=== PATIENT | female | born 1940 | race Caucasian/White ===

== ENCOUNTER 2021-11-18 11:40 | Inpatient (IN) | payer OTHER, MEDICARE ==
[~2021-11-18] VITALS: Ht 152.4 cm; Wt 44.9 kg
[~2021-11-18 11:40] MED LIST: ASPI325 PO; BENA20 PO; BISA5EC PO; BUPR150ER PO; BUPR150T2 PO; CALCAVITD PO; CALCIUM+VIT D PO; CLON.1 PO; CLON.3 PO; CLON.5 PO; DOCU100 PO; FISH1000 PO; HYDACE5325 PO; LEVSOD100 PO; LOPE2C PO; MULVITMIND PO; MULVITMINF PO; Norco 5-325 Ta1 EACH PO; ROPI.25 PO; RXHYD5325 PO
[2021-11-18 12:09] LABS: BASOPHILS ABSOLUTE AUTO 0.05 K/mm3 (0.00-0.23); BASOPHILS PERCENT AUTO 0 % (0-2); EOSINOPHILS ABSOLUTE AUTO 0.07 K/mm3 (0.00-0.68); EOSINOPHILS PERCENT AUTO 1 % (0-6); Hematocrit 42.1 % (33.0-51.0); Hemoglobin 14.4 g/dL (11.5-16.0); IMMATURE GRAN ABSOLUTE AUTO 0.05 K/mm3 (0.00-0.10); IMMATURE GRAN PERCENT AUTO 0 % (0-1); LYMPHOCYTES ABSOLUTE AUTO 1.69 K/mm3 (0.84-5.20); LYMPHOCYTES PERCENT AUTO 13 % (21-46); MONOCYTES ABSOLUTE AUTO 0.34 K/mm3 (0.16-1.47); MONOCYTES PERCENT AUTO 3 % (4-13); Mean Corpuscular HGB Conc 34.2 g/dL (31.5-36.5); Mean Corpuscular Volume 96 fL (80-100); Mean Platelet Volume 9.5 fL (9.1-12.4); NEUTROPHILS ABSOLUTE AUTO 10.58 K/mm3 (1.96-9.15); NEUTROPHILS PERCENT AUTO 83 % (41-73); Platelet Count 216 K/mm3 (150-400); RDW Coefficient Variation 14.2 % (11.7-14.2); RDW Standard Deviation 50.7 fL (35.1-46.3); Red Blood Cell Count 4.37 M/mm3 (3.80-5.20); White Blood Cell Count 12.78 K/mm3 (4.00-11.30)
[2021-11-18 12:26] LABS: Bun/Creatinine Ratio 21.7 (12.0-20.0); Calcium, Blood 8.5 mg/dL (8.5-10.1); Creatinine, Blood 0.92 mg/dL (0.40-1.00); Potassium, Blood 3.7 mmol/L (3.5-5.5)
--- NOTE | 2021-11-18 19:43 | NUR ---
SHIFT SUMMARY PT A&O3, VSS/RA, MISAEL PO, PAIN TREATED WITH 25 MCGS FENT, REPOSITIONS SELF WELL. PLAN FOR NOC SHIFT TO CALL CARDIO CONSULT FOR TONIGHT, ORTHO SURGEON PLAN FOR O.R. IN AM, NPO AT MIDNIGHT. REPORT PROVIDED TO ARIAN MACIAS.
[2021-11-18 22:21] LABS: Influenza A, PCR NEGATIVE (NEGATIVE); Influenza B, PCR NEGATIVE (NEGATIVE); Resp Syncytial Virus, PCR NEGATIVE (NEGATIVE); SARS-Cov-2 (COVID-19) PCR, MMC NEGATIVE (NEGATIVE)
--- NOTE | 2021-11-19 04:56 | NUR ---
0340: [employer] JOHAN CALLED STATING PT HAS INTERMITTENT JUNCTIONAL RHYTHM WITH HIDDEN P WAVE. CALLED DR. SMITH, HE REQUEST FOR AN EKG. EKG PERFORMED. VITALS RECHECKED PT BP AT 196/76. DENIES CHEST PAIN, NAUSEA, DIZZINESS, SWEATING AND VOMITING. PT IS ASYMPTOMATIC. PT TOOK OFF HER NASAL CANULA, SATS WERE ON 83-85%. 3L NC O2 WAS GIVEN TO PT, SATS UP TO 91-93%. PT ALSO REPORTS PAIN. MEDICATED WITH FENTANYL 50MCG. VITALS WERE RECHECKED PRIOR FENTANYL IV WAS GIVEN. BP WAS 142/69 [facility]. PT DIDN'T REQUIRE HYDRALAZINE 10MG PRN, Q6 (PER DR. SMITH) AT THIS TIME. WILL CONTINUE TO MONITOR PT. CALL LIGHT WITHIN REACH.
--- NOTE | 2021-11-19 05:59 | NUR ---
SHIFT SUMMARY PT ADMITTED FOR CLOSED FX R HIP D/T FALL. PT REPORTS MODERATE PAIN T/O SHIFT. PAIN MANAGED WITH FENTANYL 25-50MCG. PT SLEPT GOOD LAST NIGHT. TECHNICAL SALES SPECIALIST CALLED AT 0300AM STATING PT HAS JUNCTION RHYTHM. PT WAS SOUND ASLEEP. CALLED DR. SMITH OF THIS. HE ADVISE TO DO AN EKG. EKG DONE. BP WAS ELEVATED NOTIFIED DR. SMITH, NEW ORDER FOR HYRDALZINE 10MG Q6 PRN ON EMR. I RECHECKED BP PRIOR GIVING HYDRALIZE BUT BP HAS IMPROVED ALREADY TO 142/96. O2 SATS HAS BEEN 82-85% ON ROOM AIR SINCE THE START OF SHIFT. PT ON 3L O2 N/C, SATS BETWEEN 91-93%. PT REPORTS CHRONIC SOB R/T COPD AND CURRENT EVERYDAY SMOKER. PT DENIES CHEST PAIN, DIZZINESS, N/T. CARDIOLOGY CONSULT WAS CALLED IN YESTERDAY AT 0900 FOR PREOP CLEARANCE. THIAGO (ANS SERVICE) NOTIFIED DR. GREEN VIA PAGER. PT ALERT ORIENTEDX3. MOSTLY FORGETFUL DUE TO HX ALZHEIMERS. APPROPRIATE AND COOPERATIVE WITH CARE. CALL LIGHT WITHIN REAC. WILL CONTNUE TO MONITOR PT AND WILL PROVIDE REPORT TO ONCOMING NURSE
[2021-11-19] MEDS ORDERED: ALBU90OI INH (06:26)
--- NOTE | 2021-11-19 07:22 | NUR ---
CARDIOLOGY CLEARED FOR SURGERY PER CARDIOLOGY
--- NOTE | 2021-11-19 17:39 | NUR ---
SHIFT SUMMARY POD0 R HIP GAMMA NAIL, A/O X4 BUT OCCASIONALLY FORGETFUL, TOLERATING PO, 1 PERSON ASSIST c AMBULATION AND TRANSFERS, SPENT PART OF THE DAY UP TO THE CHAIR AFTER SURGERY, WORKED WITH PHYSICAL THERAPY AND WAS ABLE TO AMBULATE WELL. NO ACUTE EVENTS THIS SHIFT, CALL LIGHT IN REACH, WILL CTM AND REPORT TO ONCOMING NOC RN.
[2021-11-20 04:19] LABS: BASOPHILS ABSOLUTE AUTO 0.02 K/mm3 (0.00-0.23); BASOPHILS PERCENT AUTO 0 % (0-2); EOSINOPHILS PERCENT AUTO 0 % (0-6); Hematocrit 29.2 % (33.0-51.0); Hemoglobin 9.9 g/dL (11.5-16.0); IMMATURE GRAN ABSOLUTE AUTO 0.04 K/mm3 (0.00-0.10); IMMATURE GRAN PERCENT AUTO 0 % (0-1); LYMPHOCYTES ABSOLUTE AUTO 1.97 K/mm3 (0.84-5.20); LYMPHOCYTES PERCENT AUTO 15 % (21-46); MONOCYTES ABSOLUTE AUTO 0.75 K/mm3 (0.16-1.47); MONOCYTES PERCENT AUTO 6 % (4-13); Mean Corpuscular HGB 32.9 pg (26.0-34.0); Mean Corpuscular HGB Conc 33.9 g/dL (31.5-36.5); Mean Corpuscular Volume 97 fL (80-100); Mean Platelet Volume 10.3 fL (9.1-12.4); NEUTROPHILS ABSOLUTE AUTO 9.98 K/mm3 (1.96-9.15); NEUTROPHILS PERCENT AUTO 78 % (41-73); Platelet Count 165 K/mm3 (150-400); RDW Coefficient Variation 14.2 % (11.7-14.2); RDW Standard Deviation 50.1 fL (35.1-46.3); Red Blood Cell Count 3.01 M/mm3 (3.80-5.20); White Blood Cell Count 12.76 K/mm3 (4.00-11.30)
[2021-11-20 04:49] LABS: Free Thyroxine 0.66 ng/dL (0.70-1.60)
[2021-11-20 04:55] LABS: Albumin, Blood 3.1 g/dL (3.4-5.0); Anion Gap 8 mmol/L (6-16); Blood Urea Nitrogen 30 mg/dL (8-24); Bun/Creatinine Ratio 18.9 (12.0-20.0); CO2, Blood 23 mmol/L (21-32); Calcium, Blood 8.6 mg/dL (8.5-10.1); Chloride, Blood 101 mmol/L (98-108); Creatinine, Blood 1.59 mg/dL (0.40-1.00); Glomerular Filtration Rate 33 (60-); Glucose, Blood 105 mg/dL (70-99); Phosphorus, Blood 4.3 mg/dL (2.5-4.9); Potassium, Blood 4.3 mmol/L (3.5-5.5); Sodium, Blood 132 mmol/L (136-145); Triiodothyronine, Free <0.50 pg/mL (2.18-3.98)
--- NOTE | 2021-11-20 07:17 | NUR ---
SHIFT SUMMARY POD1 R HIP GAMMA NAIL WITH AQUACEL DRESSING REMAIN CDI. PT APPEARS TO BE MORE CONFUSE LAST NIGHT. AT ONE POINT, SHE GOT UP AND STRIP OFF HER BLANKET, GOWN, AND TELE. BED ALARM ON AND BED ON LOW POSITION. REORIENT PT, EASILY REORIENTED. SHE IS PLEASANT, COOPERATIVE WITH CARE. VSS. TELE REMAIN SINUS AMMON. AMBULATES IN THE BSC WITH FWW AND GB WITH 1 SBA WHEN VOIDING. PT UNABLE TO VOID LAST NIGHT, STRAIGHT CATH WITH 500MLS URINE OUTPUT. ALSO PT'S GFR THIS IS 33, WHICH WAS [address] SMITH, NOTIFIED, AN ORDER FOR 1 BAG OF NS AT 75MLS/HR. IV ON R AC, PATENT AND INFUSING. CALL LIGHT WITHIN REACH. REPORT GIVEN TO JAELYN MACIAS.
--- NOTE | 2021-11-20 19:14 | NUR ---
SHIFT SUMMARY POD1 R HIP GAMMA NAIL, A/O BUT FORGETFUL TODAY WITH REPEATING QUESTIONS AND STATEMENTS AT TIMES, WORKED AND DID WELL WITH PHYSICAL THERAPY, VOIDING WELL, TOLERATING PO. NO ACUTE EVENTS THIS SHIFT, CALL LIGHT IN REACH, REPORT GIVEN TO MARIUSZ RN.
--- NOTE | 2021-11-21 05:07 | NUR ---
SHIFT SUMMARY POD2 R HIP GAMMA NAILING WITH AQUACEL DRESSING WITH SMALL DRAINAGE. DRESSING INTACT. PT AOX3 FORGETFUL AT TIMES. PT REPORTS PAIN TO BE MIN AT REST AND MODERATE WITH MOVEMENT. PAIN MANAGED WITH PERCOCET (2). SPOKE WITH RESP THERAPIST AFTER HER BREATHING TREATMENT AT 2039, HE REPORTED THAT THE PT'S SATS ON LOW 80'S WITH 5L NC. ADJUST THE O2 TO 9L OXYMIZER, PT WAS SATURATING ON LOW 90'S. PT GOT UP IN THE BSC AT MIDNIGHT, REPORTING OUT OF BREATH. DESATS AT LOW 80'S AGAIN WIHT 9L OXYMIZER. PT WAS MOUTH BREATHING. ENC PURSED LIP DEEP BREATHING, ENC USE OF I/S. INCREASED 02 DEMAND UP TO 13L UNTIL PT SAT BACK IN BED AFTER USING BSC. SATS IMPROVED AFTER RESTING IN BED. PT BACK TO 9L AT SLEEP. THIS MORNING, I ATTEMPT TO WEAN O2, SHE IS CURRENTLY ON 3L WITH SATS ABOVE 92%. WILL CONTINUE TO MONITOR. MISAEL PO INTAKE. DENIES N/V. DENIES CHEST PAIN. PT HAS SOME MILD PROD COUGH AND RUNNY NOSE. CALL LIGHT WITHIN REACH. WILL PROVIDE REPORT TO ONCOMING NURSE. WILL REQUEST FOR HOME O2 EVAL PRIOR DISCHARGE WELL.
[2021-11-21 05:31] LABS: Hematocrit 24.1 % (33.0-51.0); Hemoglobin 8.2 g/dL (11.5-16.0); Mean Corpuscular HGB 33.1 pg (26.0-34.0); Mean Corpuscular Volume 97 fL (80-100); Mean Platelet Volume 10.3 fL (9.1-12.4); Platelet Count 147 K/mm3 (150-400); RDW Coefficient Variation 14.2 % (11.7-14.2); RDW Standard Deviation 50.6 fL (35.1-46.3); Red Blood Cell Count 2.48 M/mm3 (3.80-5.20); White Blood Cell Count 6.15 K/mm3 (4.00-11.30)
[2021-11-21 05:52] LABS: Albumin, Blood 2.5 g/dL (3.4-5.0); Anion Gap 8 mmol/L (6-16); Blood Urea Nitrogen 26 mg/dL (8-24); Bun/Creatinine Ratio 27.6 (12.0-20.0); CO2, Blood 24 mmol/L (21-32); Calcium, Blood 8.6 mg/dL (8.5-10.1); Chloride, Blood 106 mmol/L (98-108); Creatinine, Blood 0.94 mg/dL (0.40-1.00); Glomerular Filtration Rate 62 (60-); Glucose, Blood 112 mg/dL (70-99); Phosphorus, Blood 2.9 mg/dL (2.5-4.9); Potassium, Blood 4.1 mmol/L (3.5-5.5); Sodium, Blood 138 mmol/L (136-145)
[2021-11-21 05:53] LABS: BAND PERCENT MAN 6 % (0-8); BASOPHILS PERCENT MAN 0 % (0-2); EOSINOPHILS PERCENT MAN 0 % (0-6); LYMPHOCYTES ABSOLUTE MAN 0.86 K/mm3 (0.84-5.20); LYMPHOCYTES PERCENT MAN 14 % (21-46); MONOCYTES ABSOLUTE MAN 0.43 K/mm3 (0.16-1.47); MONOCYTES PERCENT MAN 7 % (4-13); NEUTROPHILS ABSOLUTE MAN 4.85 K/mm3 (1.96-9.15); SEG NEUTROPHILS PERCENT MAN 73 % (41-73); TOTAL CELLS COUNTED 100
[2021-11-21 09:01] LABS: Percent Saturation 5.6 % (15.0-50.0)
--- NOTE | 2021-11-21 09:27 | NUR ---
VTACH PER CAR STOWER, PT HAD A 7 BEAT RUN OF VTACH AT APPROXIMATELY 0925. IMMEDIATELY CHECKED ON PT, BP AND HR WNL. PT ORIENTED BUT DROWSY, NO CHANGE FROM AM ASSESSMENT. DR. NARANJO NOTIFIED. POTASSIUM 4.1 WITH AM LAB DRAW. MAGNESIUM LAB ORDERED PER DR. NARANJO. WILL CONTINUE TO MONITOR.
[2021-11-21 12:30] LABS: Hematocrit 23.1 % (33.0-51.0); Hemoglobin 7.9 g/dL (11.5-16.0)
--- NOTE | 2021-11-21 15:05 | NUR ---
PER DR. MURRAY MCCORD FOR LOVENOX FROM AN ORTHO STANDPOINT.
[2021-11-21 15:19] LABS: Hemoglobin 7.8 g/dL (11.5-16.0)
--- NOTE | 2021-11-21 17:12 | NUR ---
SHANELL WRAP APPLIED TO R LEG, HIP AND AROUND THE WAIST.
--- NOTE | 2021-11-21 17:13 | NUR ---
SHIFT SUMMARY PT WORKED WITH THERAPY TODAY AND SAT UP IN THE CHAIR UNTIL AFTER LUNCH TIME. PT IS A 1 ASSIST WHEN OOB. PT'S H&H IS TRENDING DOWN, DR. NARANJO AND DR. GAO AWARE. PT HAS SWELLING TO HER R THIGH, THIGH REMAINS SOFT, SHANELL WRAP APPLIED PER DR. GAO'S ORDER. PLAN FOR DISCHARGE WHEN H&H IS STABLE. WILL MONITOR UNTIL REPORT TO NOC RN.
[2021-11-21 20:35] LABS: Hemoglobin 7.9 g/dL (11.5-16.0)
--- NOTE | 2021-11-22 02:23 | NUR ---
OXYGEN SATS TREND: 1924: 86% ON 4L OXYMIZER 1929: 90% ON 5L 0050: REPORTS SOB AND PAIN ON R HIP CALLED RT FOR BREATHING TX AND MEDICATED W/ TYLENOL 83% ON 5L 010: 90% ON 9L (RT ADJUST O2, INCREASE O2 DEMAND) ... CONTINOUS BIOX IN PLACE TO MONITOR PT'S O2 SATS OVERNIGHT.
--- NOTE | 2021-11-22 02:29 | NUR ---
OXYGEN SATS TREND: 0230: 96% ON 9L OXYMIZER WEAN TO 5L 0235: 92-95% ON 5L ... WILL CONTINUE TO MONITOR
--- NOTE | 2021-11-22 03:33 | NUR ---
OXYGEN SATS TREND: 0333: WEAN PT 02 FROM 5L TO 3L (OXYMZR) 94% ON 3L ... PT IS SLEEPING
--- NOTE | 2021-11-22 04:25 | NUR ---
OXYGEN SATS TREND: 0420: PT TOOK HER OXYMIZER OUT, DESATS.. PT WAS ASLEEP WHILE CONT BIOX ALARMING. PT DESATS TO 81-83% ON ROOM AIR (AT SLEEP). 427: PT BACK TO 3L, SATS AT 94%.. ... PT SLEEPING
[2021-11-22 04:29] LABS: BASOPHILS ABSOLUTE AUTO 0.03 K/mm3 (0.00-0.23); BASOPHILS PERCENT AUTO 1 % (0-2); EOSINOPHILS ABSOLUTE AUTO 0.07 K/mm3 (0.00-0.68); EOSINOPHILS PERCENT AUTO 1 % (0-6); Hematocrit 22.1 % (33.0-51.0); Hemoglobin 7.5 g/dL (11.5-16.0); IMMATURE GRAN ABSOLUTE AUTO 0.02 K/mm3 (0.00-0.10); IMMATURE GRAN PERCENT AUTO 0 % (0-1); LYMPHOCYTES ABSOLUTE AUTO 1.35 K/mm3 (0.84-5.20); LYMPHOCYTES PERCENT AUTO 26 % (21-46); MONOCYTES ABSOLUTE AUTO 0.36 K/mm3 (0.16-1.47); MONOCYTES PERCENT AUTO 7 % (4-13); Mean Corpuscular HGB 32.6 pg (26.0-34.0); Mean Corpuscular HGB Conc 33.9 g/dL (31.5-36.5); Mean Corpuscular Volume 96 fL (80-100); NEUTROPHILS ABSOLUTE AUTO 3.39 K/mm3 (1.96-9.15); NEUTROPHILS PERCENT AUTO 65 % (41-73); Platelet Count 155 K/mm3 (150-400); RDW Coefficient Variation 14.6 % (11.7-14.2); RDW Standard Deviation 50.8 fL (35.1-46.3); White Blood Cell Count 5.22 K/mm3 (4.00-11.30)
[2021-11-22 04:48] LABS: Albumin, Blood 2.3 g/dL (3.4-5.0); Anion Gap 7 mmol/L (6-16); Blood Urea Nitrogen 22 mg/dL (8-24); Bun/Creatinine Ratio 28.5 (12.0-20.0); CO2, Blood 25 mmol/L (21-32); Calcium, Blood 8.3 mg/dL (8.5-10.1); Chloride, Blood 106 mmol/L (98-108); Creatinine, Blood 0.77 mg/dL (0.40-1.00); Glomerular Filtration Rate 78 (60-); Glucose, Blood 98 mg/dL (70-99); Phosphorus, Blood 2.1 mg/dL (2.5-4.9); Potassium, Blood 3.6 mmol/L (3.5-5.5); Sodium, Blood 138 mmol/L (136-145)
--- NOTE | 2021-11-22 06:13 | NUR ---
SHIFT SUMMARY NO ACUTE CHANGES OVERNIGHT. SEE NOTES FOR O2 SAT TRENDS OVERNIGHT. PT MAINTAINING 91-95% ON 3L OXYMIZER, LONG SHE DOES NOT TAKE THE OXYMIZER OFF. CONTINOUS BIOX AT BEDSIDE TO MONITIOR PT'S 02 SAT. PT REPORTS PAIN ON R HIP, PAIN MANAGED WITH TYLENOL AND 1 TAB PERCOCET. PT REPORTS 1 EPISODE OF SOB THIS MORNING, CALLED RESP THERAPIST FOR BREATHING TREATMENT. AOX4. FORGETFUL AT TIMES. VSS. NO EVENTS ON TELE OVERNIGHT. DENIES CHEST PAIN, DIZZINESS, NUMBNESS AND TINGLING SENSATION. PT HAS MILD DRY COUGH. LUNGS SOUNDS WITH MILD WHEEZING. ENC USE I/S. VOIDING, USE BSC WITH FWW/GB 1 SBA. CALL LIGHT WITHIN REACH. NOA PROVIDE REPORT TO ONCOMING NURSE.
--- NOTE | 2021-11-22 17:00 | NUR ---
SHANELL WRAP REMOVED FROM R LEG, FOR PT COMFORT. PT HAS INCREASE BRUISING AROUND THE SURGICAL SITE TO THE R HIP. PT REPORTED INCREASED COMFORT AFTER SHANELL WRAP WAS REMOVED. PT HAS SWELLING TO THE L HIP AND THIGH.
--- NOTE | 2021-11-22 19:49 | NUR ---
SHIFT SUMMARY PT IS POD3 FROM A R HIP PINNING WITH DR. JOSHUA. PT HAS HAD INCREASED PAIN TODAY, PERCOCET HAS BEEN GIVEN TO MANAGE PAIN. PT ALSO HAS INCREASED BRUISING TO THE R HIP, HIP/THIGH IS STILL SOFT. PT IS A 1 ASSIST WHEN OOB. PT IS TOLERATING PO BUT EATING <50% OF MEALS. PT REMAINS ON OXYGEN; PT TRANSITIONED FROM 3L O2 VIA OXIMIZER TO 3L O2 VIA NC. PT OCCASIONALLY REMOVES HER OXYGEN AND DESATURATES IN TO THE MID TO LOW 80S; TODAY PT HAS RECOVERED QUICKLY ONCE OXYGEN WAS PLACED BACK ON. REPORT GIVEN TO MARIUSZ MACIAS.
--- NOTE | 2021-11-23 04:41 | NUR ---
WATER CONSERVATION SPECIALIST SUMMARY NO ACUTE CHANGES THIS SHIFT. PT AAOX3 BUT IS FORGETFUL AT TIMES. STILL REQUIRING 3L O2 VIA NC, DESATS TO MID 80'S WHEN O2 IS OFF. PT IS A 1 ASSIST W/ FWW. AQUACEL DRESSING TO R HIP CHANGED. VSS, WILL CONTINUE TO MONITOR.
[2021-11-23 04:48] LABS: BASOPHILS ABSOLUTE AUTO 0.02 K/mm3 (0.00-0.23); BASOPHILS PERCENT AUTO 0 % (0-2); EOSINOPHILS ABSOLUTE AUTO 0.11 K/mm3 (0.00-0.68); EOSINOPHILS PERCENT AUTO 2 % (0-6); Hematocrit 21.5 % (33.0-51.0); Hemoglobin 7.1 g/dL (11.5-16.0); IMMATURE GRAN ABSOLUTE AUTO 0.02 K/mm3 (0.00-0.10); IMMATURE GRAN PERCENT AUTO 0 % (0-1); LYMPHOCYTES ABSOLUTE AUTO 1.38 K/mm3 (0.84-5.20); LYMPHOCYTES PERCENT AUTO 22 % (21-46); MONOCYTES ABSOLUTE AUTO 0.48 K/mm3 (0.16-1.47); MONOCYTES PERCENT AUTO 8 % (4-13); Mean Corpuscular HGB 32.7 pg (26.0-34.0); Mean Corpuscular Volume 99 fL (80-100); NEUTROPHILS ABSOLUTE AUTO 4.31 K/mm3 (1.96-9.15); NEUTROPHILS PERCENT AUTO 68 % (41-73); NRBC ABSOLUTE 0.02 K/mm3 (0.00-0.02); NRBC Auto 0.3 /100 WBC (0.0-0.2); Platelet Count 188 K/mm3 (150-400); RDW Coefficient Variation 14.8 % (11.7-14.2); RDW Standard Deviation 53.1 fL (35.1-46.3); Red Blood Cell Count 2.17 M/mm3 (3.80-5.20); White Blood Cell Count 6.32 K/mm3 (4.00-11.30)
--- NOTE | 2021-11-23 11:40 | NUR ---
DESKTOP ANALYST CALLED & NOTIFIED THIS RN OF VENTRICULAR JUNCTIONAL RHYTHYM. DR LUU NOTIFIED, PRINTED STRIPS OFF AND GAVE TO DR LUU. DR LUU TO BEDSIDE AND DISCUSSED WITH PATIENT AND THIS RN THAT HE CONSULTED CARDIOLOGY AND DR HOLT WILL BE COMING TO SEE PATIENT.
--- NOTE | 2021-11-23 13:11 | NUR ---
DR HOLT AT BEDSIDE. DISCUSSED WITH PATIENT AND WITH PATIENT RADHA THAT A PACEMAKER MAY BE NEEDED DUE TO PATIENT HAVING A 3RD DEGREE AV BLOCK. DR HOLT STATES IT IS NO EMERGENCY AT THIS TIME, BUT WILL BE NEEDED IN THE FUTURE. PATIENT AND VERBALIZED UNDERSTANDING.
--- NOTE | 2021-11-23 14:10 | NUR ---
PATIENTS BLOOD PRESSURE 94/45, PATIENT LYING IN BED. DENIES ANY LIGHTHEADEDNESS/DIZZYNESS. RECHECK OF BLOOD PRESSURE WAS 77/48. THIS RN CALLED DR LUU AND NOTIFIED OF BLOOD PRESSURE. NO NEW ORDERS GIVEN, ORDERED TO CONTINUE WITH STARTING THE BLOOD TRANSFUSION.
--- NOTE | 2021-11-23 17:50 | NUR ---
SHIFT SUMMARY POD 4 R HIP PINNING. X3 AQUACEL DRESSINGS IN PLACE TO RIGHT HIP, CHANGED TODAY DUE TO MODERATE DRAINAGE, C/D/I AT THIS TIME. LARGE DARK PURPLE/RED BRUISE TO RIGHT HIP BELOW INCISIONS. PATIENT UP TO BSC AND CHAIR THIS AM, TOELRATED WELL WITH 1P ASSIST W/ FWW & GB. PAIN MANAGED PER EMAR. TELE IN PLACE, PATIENT HAD EPISODE OF VENTRICULAR JUNCTION RHYTHYM THIS AM, SEE NOTE. ASYMPTOMATIC, NO OTHER EPISODES SINCE THEN. BLOOD PRESSURE DROPPED ABOUT 1400, PATIENT ASYMPTOMATIC AGAIN, MD NOTIFIED, SEE NOTE. TRANSFUSED 1 UNIT PRBC D/T LOW H&H, PATIENT TOLERATED WELL. FORGETFUL THROUGHOUT DAY AT TIMES, FOR EXAMPLE, WILL TELL THE SAME STORIES MULTIPLE TIMES AND WILL REPETITIVELY ASK THE SAME QUESTIONS. VERY PLEASANT, CALLS APPROPRIATELY. WILL REPORT TO ONCOMING RN.
[2021-11-24 04:43] LABS: BASOPHILS ABSOLUTE AUTO 0.02 K/mm3 (0.00-0.23); BASOPHILS PERCENT AUTO 0 % (0-2); EOSINOPHILS ABSOLUTE AUTO 0.18 K/mm3 (0.00-0.68); EOSINOPHILS PERCENT AUTO 3 % (0-6); Hematocrit 25.6 % (33.0-51.0); Hemoglobin 8.6 g/dL (11.5-16.0); IMMATURE GRAN ABSOLUTE AUTO 0.02 K/mm3 (0.00-0.10); IMMATURE GRAN PERCENT AUTO 0 % (0-1); LYMPHOCYTES ABSOLUTE AUTO 1.61 K/mm3 (0.84-5.20); LYMPHOCYTES PERCENT AUTO 26 % (21-46); MONOCYTES ABSOLUTE AUTO 0.54 K/mm3 (0.16-1.47); MONOCYTES PERCENT AUTO 9 % (4-13); Mean Corpuscular HGB 32.1 pg (26.0-34.0); Mean Corpuscular HGB Conc 33.6 g/dL (31.5-36.5); Mean Corpuscular Volume 96 fL (80-100); Mean Platelet Volume 9.9 fL (9.1-12.4); NEUTROPHILS ABSOLUTE AUTO 3.92 K/mm3 (1.96-9.15); NEUTROPHILS PERCENT AUTO 62 % (41-73); NRBC ABSOLUTE 0.02 K/mm3 (0.00-0.02); NRBC Auto 0.3 /100 WBC (0.0-0.2); Platelet Count 185 K/mm3 (150-400); RDW Coefficient Variation 16.4 % (11.7-14.2); RDW Standard Deviation 56.5 fL (35.1-46.3); Red Blood Cell Count 2.68 M/mm3 (3.80-5.20); White Blood Cell Count 6.29 K/mm3 (4.00-11.30)
--- NOTE | 2021-11-24 04:52 | NUR ---
PROBATION SUPERVISOR SUMMARY PT PLEASANT AND COOPERATIVE WITH CARE. 1 ASSIST TO BSC WITH FWW, PT IS SLOW MOVING BUT IS STEADY. SOME SMALL AMOUNTS OF DRAINAGE NOTED TO AQUACEL DRESSING TO R HIP. HGB UP TO 8.6 THIS AM WITH MORNING LABS. PT HAS HAD NO EVENTS ON TELEMETRY THROUGH THE NIGHT AND HAS SLEPT MOST OF THE SHIFT. MEDICATED FOR PAIN AT BEDTIME. VSS, WILL CONTINUE TO MONITOR.
[2021-11-24 05:05] LABS: Bun/Creatinine Ratio 25.5 (12.0-20.0); Calcium, Blood 8.4 mg/dL (8.5-10.1); Creatinine, Blood 0.75 mg/dL (0.40-1.00); Potassium, Blood 3.6 mmol/L (3.5-5.5)
[2021-11-24 08:55] LABS: Stool Occult Blood Guaiac 1 Neg (Neg)
[2021-11-24] MEDS ORDERED: ROPI1 PO (12:00)
[2021-11-24] MEDS ORDERED: DOCU100 PO (12:01)
[2021-11-24] MEDS ORDERED: HYDR10 PO (12:01)
[2021-11-24] MEDS ORDERED: PANT40 PO (12:02)
[2021-11-24] MEDS ORDERED: SENN187 PO (12:02)
[2021-11-24] MEDS ORDERED: VITAMIN D5000 UNIT PO (12:02)
--- NOTE | 2021-11-24 13:19 | NUR ---
POD 5 R HIP PINNING, PATIENT HAS 3 AQUACEL DRESSINGS TO R HIP, CHANGED TODAY, C/D/I AT THIS TIME. PATIENT DENIES PAIN. TRANSFERS W/ 1P W/ FWW&GB, TOLERATES WELL. EATING, DRINKING, & VOIDING WELL. PLAN TO DC TODAY ONCE HOME O2 GETS ARRANGED. CALL LIGHT IN REACH, REPORT GIVEN TO COLLEEN CHRISTY.
--- NOTE | 2021-11-24 15:27 | NUR ---
DISCHARGE SUMMARY ASSUMED CARE OF THE PATIENT JUST AFTER 1300 TODAY. DISCUSSED DISCHARGE INSTRUCTIONS WITH THE PATIENT AND HER S/O INCLUDING HOME CARE, INCISION CARE, MEDICATIONS, AND F/U INFORMATION. IV ACCESS REMOVED AND NO OTHER DEVICES IN PLACE. PT HAD NO QUESTIONS AT THIS TIME, PT ESCORTED OUT VIA c OXYGEN TO PRIVATE AUTO WHEN SHE HAD A PORTABLE O2 TANK IN HER CAR.
== END 2021-11-24 15:00 | disposition home health service (06) | DRG 480 ==
LOC: ER 11:40 → SURS 14:36
PROVIDERS: Emergency Medicine; Internal Medicine; Orthopaedic Surgery; ADMIT Family Medicine
PROC: 0QS606Z Reposition Right Upper Femur with Intramedullary Internal Fixation Device, Open Approach (ICD-10-PCS; principal; 2021-11-19 09:00)
PROC: 30233N1 Transfusion of Nonautologous Red Blood Cells into Peripheral Vein, Percutaneous Approach (ICD-10-PCS; 2021-11-23)
DX: S72.141A Displaced intertrochanteric fracture of right femur, initial encounter for closed fracture (principal); J18.9 Pneumonia, unspecified organism; J96.21 Acute and chronic respiratory failure with hypoxia; E87.1 Hypo-osmolality and hyponatremia; I44.2 Atrioventricular block, complete; N17.9 Acute kidney failure, unspecified; I47.2 Ventricular tachycardia; J44.0 Chronic obstructive pulmonary disease with (acute) lower respiratory infection; I10 Essential (primary) hypertension; Z20.822 Contact with and (suspected) exposure to COVID-19; E03.9 Hypothyroidism, unspecified; F03.90 Unspecified dementia, unspecified severity, without behavioral disturbance, psychotic disturbance, mood disturbance, and anxiety; D72.828 Other elevated white blood cell count; D69.6 Thrombocytopenia, unspecified; D50.9 Iron deficiency anemia, unspecified; I27.20 Pulmonary hypertension, unspecified; E88.09 Other disorders of plasma-protein metabolism, not elsewhere classified; G25.81 Restless legs syndrome; F17.210 Nicotine dependence, cigarettes, uncomplicated; Z71.6 Tobacco abuse counseling; Z90.89 Acquired absence of other organs; Z98.41 Cataract extraction status, right eye; Z98.42 Cataract extraction status, left eye; Z98.51 Tubal ligation status; Z88.8 Allergy status to other drugs, medicaments and biological substances; Z88.1 Allergy status to other antibiotic agents; Z88.0 Allergy status to penicillin; Z79.899 Other long term (current) drug therapy; W01.0XXA Fall on same level from slipping, tripping and stumbling without subsequent striking against object, initial encounter
CPT/HCPCS: 0241U; 36415; 71045; 73502; 74176; 80048; 80069; 82272; 82607; 82728; 82746; 83540; 83550; 83735; 83880; 84146; 84439; 84443; 84481; 85014; 85018; 85025; 86850; 86900; 86901; 86923; 93005; 93010; 93306; 94640; 94664; 94760; 94761; 94762; 96374; 96375; 97110; 97116; 97161; 97166; 97530; 97535; 98960; 99285-25; A9270; C1713; C1769; C9113; J0690; J0696; J1100; J1170; J1650; J2370; J2405; J2704; J2916; J3010; J7030; J7040; J7120; P9016

== ENCOUNTER 2021-11-26 13:56 | Emergency (ER) | payer MEDICARE, OTHER ==
[~2021-11-26] VITALS: Ht 149.9 cm; Wt 41.3 kg
[~2021-11-26 13:56] MED LIST changes: +ALBU90OI INH; +HYDR10 PO; +PANT40 PO; +ROPI1 PO; +SENN187 PO; +VITAMIN D5000 UNIT PO
[2021-11-26 15:34] LABS: BASOPHILS ABSOLUTE AUTO 0.02 K/mm3 (0.00-0.23); BASOPHILS PERCENT AUTO 0 % (0-2); EOSINOPHILS PERCENT AUTO 1 % (0-6); Hematocrit 26.7 % (33.0-51.0); IMMATURE GRAN ABSOLUTE AUTO 0.04 K/mm3 (0.00-0.10); IMMATURE GRAN PERCENT AUTO 1 % (0-1); LYMPHOCYTES ABSOLUTE AUTO 1.48 K/mm3 (0.84-5.20); LYMPHOCYTES PERCENT AUTO 19 % (21-46); MONOCYTES ABSOLUTE AUTO 0.64 K/mm3 (0.16-1.47); MONOCYTES PERCENT AUTO 8 % (4-13); Mean Corpuscular HGB 32.4 pg (26.0-34.0); Mean Corpuscular HGB Conc 33.7 g/dL (31.5-36.5); Mean Corpuscular Volume 96 fL (80-100); Mean Platelet Volume 9.4 fL (9.1-12.4); NEUTROPHILS ABSOLUTE AUTO 5.54 K/mm3 (1.96-9.15); NEUTROPHILS PERCENT AUTO 71 % (41-73); Platelet Count 254 K/mm3 (150-400); RDW Coefficient Variation 16.1 % (11.7-14.2); RDW Standard Deviation 53.8 fL (35.1-46.3); Red Blood Cell Count 2.78 M/mm3 (3.80-5.20); White Blood Cell Count 7.82 K/mm3 (4.00-11.30)
[2021-11-26 15:57] LABS: Albumin, Blood 2.7 g/dL (3.4-5.0); Albumin/Globulin Ratio 0.8 (0.8-1.8); Bilirubin, Total 0.9 mg/dL (0.1-1.0); Bun/Creatinine Ratio 38.4 (12.0-20.0); Calcium, Blood 8.9 mg/dL (8.5-10.1); Creatinine, Blood 0.73 mg/dL (0.40-1.00); Globulin, Blood 3.6 g/dL (2.2-4.0); Total Protein, Blood 6.3 g/dL (6.4-8.2)
== END 2021-11-26 20:50 | disposition home or self-care (01) ==
LOC: ER 13:56
PROVIDERS: Physician Assistant
DX: L76.32 Postprocedural hematoma of skin and subcutaneous tissue following other procedure (principal); Y83.8 Other surgical procedures as the cause of abnormal reaction of the patient, or of later complication, without mention of misadventure at the time of the procedure; I10 Essential (primary) hypertension; E03.9 Hypothyroidism, unspecified; F17.210 Nicotine dependence, cigarettes, uncomplicated; Z88.8 Allergy status to other drugs, medicaments and biological substances; Z88.6 Allergy status to analgesic agent; Z88.1 Allergy status to other antibiotic agents; Z88.0 Allergy status to penicillin; Z91.014 Allergy to mammalian meats
CPT/HCPCS: 36415; 73552; 76882; 80053; 85025

== ENCOUNTER 2023-01-12 10:11 | Emergency (ER) | payer MEDICARE, OTHER ==
[~2023-01-12] VITALS: Ht 152.4 cm; Wt 39.5 kg
[2023-01-12 10:43] LABS: BASOPHILS ABSOLUTE AUTO 0.04 K/mm3 (0.00-0.23); BASOPHILS PERCENT AUTO 1 % (0-2); EOSINOPHILS ABSOLUTE AUTO 0.07 K/mm3 (0.00-0.68); EOSINOPHILS PERCENT AUTO 1 % (0-6); Hematocrit 44.7 % (33.0-51.0); Hemoglobin 15.4 g/dL (11.5-16.0); IMMATURE GRAN ABSOLUTE AUTO 0.02 K/mm3 (0.00-0.10); IMMATURE GRAN PERCENT AUTO 0 % (0-1); LYMPHOCYTES ABSOLUTE AUTO 1.65 K/mm3 (0.84-5.20); LYMPHOCYTES PERCENT AUTO 23 % (21-46); MONOCYTES ABSOLUTE AUTO 0.36 K/mm3 (0.16-1.47); MONOCYTES PERCENT AUTO 5 % (4-13); Mean Corpuscular HGB 31.1 pg (26.0-34.0); Mean Corpuscular HGB Conc 34.5 g/dL (31.5-36.5); Mean Corpuscular Volume 90 fL (80-100); Mean Platelet Volume 10.1 fL (9.1-12.4); NEUTROPHILS ABSOLUTE AUTO 5.18 K/mm3 (1.96-9.15); NEUTROPHILS PERCENT AUTO 71 % (41-73); Platelet Count 209 K/mm3 (150-400); RDW Coefficient Variation 13.3 % (11.7-14.2); RDW Standard Deviation 44.5 fL (35.1-46.3); Red Blood Cell Count 4.95 M/mm3 (3.80-5.20); White Blood Cell Count 7.32 K/mm3 (4.00-11.30)
[2023-01-12 10:45] LABS: Calcium, Ionized (POC) 1.13 mmol/L (1.10-1.46); Chloride (POC) 108 mmol/L (98-108); Creatinine (POC) 0.7 mg/dL (0.6-1.0); Glucose (ISTAT POC) 107 mg/dL (70-99); Hemoglobin (POC) 16.3 g/dL (12.0-16.0); Potassium (POC) 3.9 mmol/L (3.5-5.5); Sodium (POC) 141 mmol/L (135-148); Total CO2 (POC) 22 mmol/L (21-32)
[2023-01-12 11:06] LABS: Alanine Aminotransfer (ALT/SGP 19 U/L (12-78); Albumin, Blood 3.2 g/dL (3.4-5.0); Albumin/Globulin Ratio 0.7 (0.8-1.8); Alk Phos 61 U/L (50-136); Anion Gap 6 mmol/L (6-16); Aspartate Aminotrans (AST/SGOT 14 U/L (12-37); Bilirubin, Total 0.6 mg/dL (0.1-1.0); Blood Urea Nitrogen 20 mg/dL (8-24); Bun/Creatinine Ratio 25.8 (12.0-20.0); CO2, Blood 23 mmol/L (21-32); Calcium, Blood 9.1 mg/dL (8.5-10.1); Chloride, Blood 113 mmol/L (98-108); Creatinine, Blood 0.77 mg/dL (0.40-1.00); Ethanol (Alcohol), Blood, Med <3 mg/dL; Globulin, Blood 4.4 g/dL (2.2-4.0); Glomerular Filtration Rate 78 (60-); Glucose, Blood 110 mg/dL (70-99); Sodium, Blood 142 mmol/L (136-145); Total Protein, Blood 7.6 g/dL (6.4-8.2)
[2023-01-12 12:30] VITALS: BP 167/85
== END 2023-01-12 12:43 | disposition short-term general hospital (02) ==
LOC: ER 10:11
PROVIDERS: Emergency Medicine
DX: I63.9 Cerebral infarction, unspecified (principal); I48.91 Unspecified atrial fibrillation; G81.90 Hemiplegia, unspecified affecting unspecified side; R00.1 Bradycardia, unspecified; I10 Essential (primary) hypertension; E03.9 Hypothyroidism, unspecified; Z88.0 Allergy status to penicillin; Z88.8 Allergy status to other drugs, medicaments and biological substances; Z88.1 Allergy status to other antibiotic agents; Z91.018 Allergy to other foods; Z79.899 Other long term (current) drug therapy
CPT/HCPCS: 37195; 70450; 70496; 70498; 80047; 80053; 85014; 85025; 93005; 93010; 96374-59; 96375-59; 99291-25; G0480; J0360; J2060; J3010; J3101; J7050; Q3014; Q9967